=== PATIENT | male | born 1955 | race Caucasian/White ===

== ENCOUNTER → 2018-10-05 | Outpatient (CLI) | payer OTHER ==
--- NOTE | 2018-10-05 15:42 | PCVCIMAG ---
APPROVED REPORT Study performed: 10/05/2018 13:13:02 Exam: Stress Echocardiogram Indication: Chest pressure,dyspnea Patient Location: Echo lab Stress Nurse: Tanya Nogueira RN Room #: 2 Status: routine Ht: 5 ft 11 in HR: 62 bpm BP: 150/84 mmHg Rhythm: NSR Medical History Medical History: HTN, Hyperlipidemia Cardiac Risk Factors: HTN, Hyperlipidemia, FHX of CAD Previous Cardiac Procedures: none Pretest Chest Pain Characteristics: No chest pain Exercise History: Indeterminate Procedure The patient underwent an Exercise Stress Test using the Lonnie Protocol. Blood pressure, heart rate, and EKG were monitored. An Echocardiogram was performed by cutter grind tool technician in four stages in quad fashion. At peak stress, four selected images were obtained and placed side by side with resting images for comparison. Stress Test Details Stress Test: Exercise stress testing was performed using a Lonnie protocol. HR Resting HR: 62 bpmMax Heart Rate (APMHR): 156 bpm Max HR Achieved: 148 bpmTarget HR (85% APMHR): 132 bpm % of APMHR: 94 Recovery HR: 82 bpm HR response to stress: Normal HR response to stress BP Resting BP: 150/84 mmHg Max BP: 180/84 mmHg Recovery BP: 142/78 mmHg BP response to stress: Normal blood pressure response to stress. ECG Resting ECG: Sinus Rhythm Stress ECG: Sinus Rhythm ST Change: Non-ischemic Arrhythmia: Rare PVCs,couplet PVCs,PACs Recovery ECG: Sinus Rhythm Recovery ST Change: Non-ischemic Recovery Arrhythmia: None Clinical Reason for Termination: Maximal effort Stress Symptoms: fatigue Exercise duration: 10 min 03 sec Highest Stage Achieved: Stage 4: 4.2 mph at 16% grade. Exercise capacity: 13.4 METs Overall Exercise Capacity for Age: Good Scale: Active Angina Score: None No complications. Stress ECG Conclusion The patient exercised according to the LONNIE protocol for 10:03 mins; achieving a work level of 13.4 METS. The resting heart rate of 62 bpm eileen to a maximum heart rate of 148 bpm. This value represent 94% of the maximal, age-predicted heart rate. The resting blood pressure of 150/84 mmHg, eileen to a maximum blood pressure of 180/84mmHg. The exercise test was stopped due to fatigue. Pre-Stress Echo The resting Echocardiogram showed normal left ventricular contractility with an estimated Ejection Fraction of about 55-60%. Normal wall motion in all segments on baseline images. Post-Stress Echo The stress Echocardiogram showed normal left ventricular contractility with an estimated Ejection Fraction of about 65-70%. Normal augmentation of wall motion in all segments on post stress images. Clinical No clinical or ECG evidence for ischemia. Conclusion Clinical Response: Non-ischemic Exercise Capacity: Superior Stress ECG Response: Non-ischemic Stress Echo Images: Non-ischemic No clinical, EKG or echocardiographic evidence for ischemia. No echocardiographic evidence for exercise induced ischemia. Normal stress echocardiogram with maximal exercise stress. <Conclusion> No clinical, EKG or echocardiographic evidence for ischemia. No echocardiographic evidence for exercise induced ischemia. Normal stress echocardiogram with maximal exercise stress.
== END | disposition home or self-care (01) ==
LOC: PCVCIMAG 13:17
PROVIDERS: ATTEND Internal Medicine Cardiovascular Disease
DX: I25.9 Chronic ischemic heart disease, unspecified (principal); I10 Essential (primary) hypertension; R07.89 Other chest pain; R06.02 Shortness of breath; E78.5 Hyperlipidemia, unspecified; Z82.49 Family history of ischemic heart disease and other diseases of the circulatory system
CPT/HCPCS: 93325; 93351

== ENCOUNTER → 2019-03-01 | Outpatient (CLI) | payer OTHER ==
--- NOTE | 2019-03-01 11:41 | PCVCIMAG ---
EXAM: VENOUS DUPLEX LEFT LOWER EXTREMITY INDICATION: Leg pain and swelling. FINDINGS: Left leg: Severe nonocclusive thrombus throughout the common femoral vein as well as the lower external iliac vein. Occlusive thrombus throughout the mid and upper main femoral vein. Severe nonocclusive thrombus throughout the lower main femoral vein and upper popliteal vein. Mild nonocclusive thrombus lower popliteal vein. Flow is seen throughout the calf veins with only minimal scattered thrombus. IMPRESSION: Extensive deep venous thrombosis of the left lower extremity appears to have shown some minimal improvement since prior study of January 2019. Venography and intravascular ultrasound evaluation of the iliac veins may be of value to exclude iliac vein compression/stenosis. LOC:[id number]
--- NOTE | 2019-03-01 11:55 | PCVCIMAG ---
APPROVED REPORT Study performed: 03/01/2019 11:07:34 EXAM: Limited 2D and color flow Echocardiogram Patient Location: Echo lab Status: routine BSA: 2.13 HR: 57 bpmBP: 134/76 mmHg Rhythm: Bradycardia Other Information Study Quality: Adequate Indications Pulmonary Embolism Dyspnea 2D Dimensions IVSd: 12.67 (7-11mm) LVDd: 38.39 mm PWd: 10.39 (7-11mm)Ascending Ao: 34.51 (22-36mm) LVDs: 24.34 (25-40mm) Left Atrium: 37.21 (27-40mm) Aortic Root: 32.12 mm LV Single Plane 4CH: 49.91 % LV Single Plane 2CH: 44.93 % Biplane EF: 49.5 % Tricuspid Valve TR Peak Prasad.: 2.49 m/s TR Peak Gr.: 24.77 mmHg Left Ventricle The left ventricle is normal size. There is normal LV segmental wall motion. Mild concentric left ventricular hypertrophy. Left ventricular systolic function is within lower limits of normal. LVEF is 50%. This study is not technically sufficient to allow evaluation of the LV diastolic function. Right Ventricle Right ventricle is mild to moderately dilated. The right ventricular systolic function is normal. Atria The left atrium size is normal. Right atrium is moderately dilated. Aortic Valve The aortic valve is normal in structure. No aortic regurgitation is present. There is no aortic valvular stenosis. Mitral Valve The mitral valve is normal in structure. There is no mitral valve regurgitation noted. No evidence of mitral valve stenosis. Tricuspid Valve The tricuspid valve is normal in structure. Mild tricuspid valve regurgitation noted with PAP of 32 mmHg. Pulmonic Valve The pulmonary valve is normal in structure. There is no pulmonic valvular regurgitation. Great Vessels The aortic root is normal in size. IVC is normal in size and collapses >50% with inspiration. Pericardium There is no pericardial effusion. There is no pleural effusion. <Conclusion> The left ventricle is normal size. Mild concentric left ventricular hypertrophy. LVEF is 50%. This study is not technically sufficient to allow evaluation of the LV diastolic function. Right ventricle is mild to moderately dilated. The right ventricular systolic function is normal. Right atrium is moderately dilated. The aortic valve is normal in structure. There is no mitral valve regurgitation noted. Mild tricuspid valve regurgitation noted with PAP of 32 mmHg. The aortic root is normal in size. There is no pericardial effusion.
== END | disposition home or self-care (01) ==
LOC: PCVCIMAG 08:45
PROVIDERS: ATTEND Internal Medicine Cardiovascular Disease
DX: I82.402 Acute embolism and thrombosis of unspecified deep veins of left lower extremity (principal); I26.99 Other pulmonary embolism without acute cor pulmonale; I10 Essential (primary) hypertension; R06.02 Shortness of breath
CPT/HCPCS: 93308; 93971